=== PATIENT | female | born 1965 | race American Indian/Alaskan Native ===

== ENCOUNTER 2017-02-26 10:37 | Outpatient (CLI) | payer OTHER ==
--- NOTE | 2017-02-26 11:46 | XRay Report ---
LEFT KNEE, 2 views: History: Knee pain. The bony architecture is intact without evidence of fracture or dislocation. No significant soft tissue abnormality is seen. IMPRESSION: Normal left knee.
--- NOTE | 2017-02-26 11:47 | XRay Report ---
LUMBOSACRAL SPINE, 3 VIEWS: History: Back pain Findings: The vertebral bodies, disk spaces and posterior elements are intact. No compression deformity or malalignment. The SI joints are symmetric and unremarkable. Minimal degenerative disc disease and facet arthropathy are noted at all levels. Impression: No evidence for acute injury to the lumbar spine. Minimal spondylosis.
--- NOTE | 2017-02-26 11:49 | XRay Report ---
RIGHT FOOT, 2 VIEWS HISTORY: Right foot pain. FINDINGS: Compared to 09/27/16. There is a transverse fracture near the base of the fifth metatarsal. Please note this fracture was also noted on an x-ray dated 09/27/16. This either represents a new injury or nonunion of the previous fracture. Please correlate with the patient's history. The remaining bony structures are intact. No erosive joint pathology. Mild osteoarthritic changes are noted in the midfoot. Small plantar spur. IMPRESSION: Traumatic fracture, right fifth metatarsal. See above.
== END 2017-02-26 10:38 | disposition home or self-care (01) ==
LOC: XRAY 10:37
PROVIDERS: ATTEND Internal Medicine
DX: S92.351A Displaced fracture of fifth metatarsal bone, right foot, initial encounter for closed fracture (principal); H54.11 Blindness, right eye, low vision left eye; E11.40 Type 2 diabetes mellitus with diabetic neuropathy, unspecified; X58.XXXA Exposure to other specified factors, initial encounter; Y93.89 Activity, other specified; Y92.89 Other specified places as the place of occurrence of the external cause; Y99.8 Other external cause status; M47.896 Other spondylosis, lumbar region; M25.562 Pain in left knee
CPT/HCPCS: 72100

== ENCOUNTER 2017-08-05 14:36 | Outpatient (CLI) | payer MEDICAID ==
--- NOTE | 2017-08-06 10:21 | Mammography Report ---
BILATERAL DIGITAL SCREENING MAMMOGRAM with CAD: 08/05/17 14:36:00 CLINICAL: Routine screening. COMPARISON:03/27/13 FINDINGS: The breasts are almost entirely fatty. No mass, architectural distortion or suspicious calcifications. IMPRESSION: No mammographic evidence of malignancy. BI-RADS CATEGORY: 1 - - Negative RECOMMENDATION: Routine mammographic screening in one year. COMMENT: Patient follow-up letters are generated by our [employer] application.
== END 2017-08-05 14:37 | disposition home or self-care (01) ==
LOC: MAMMO 14:36
PROVIDERS: ATTEND Hospitalist
DX: Z12.31 Encounter for screening mammogram for malignant neoplasm of breast (principal)
CPT/HCPCS: 77067; G0202

== ENCOUNTER 2018-11-18 15:55 | Inpatient (IN) | payer MEDICAID, OTHER, SELFPAY ==
--- NOTE | 2018-11-18 16:50 | Emergency Department Report ---
HPI - General Chief Complaint: Extremity Problem,Nontraumatic Time Seen by Provider: 11/18/18 16:29 - HPI HPI: 53-year-old AA female presents to the emergency department, sent in by her engineering faculty Dr. Robledo, with concern of a right foot and toe infection in this diabetic patient. The patient is a history of [id number] diabetes, hypertension, high cholesterol. She has had some pain and darkening of the skin to the right middle toe and distal foot that has been getting progressively worse for the past month. She denies any fever. She has not been on any antibiotics or taken anything for her symptoms prior to arrival. No recent tr beatriz or sick contacts at home. ED Past Medical Hx - Past Medical History Previous Medical History?: Yes Hx Hypertension: Yes Hx Diabetes: Yes - Surgical History Past Surgical History?: Yes Additional Surgical History: hysterectomy - Social History Smoking Status: Never Smoker Substance Use Type: None - Medications Home Medications: Home Medications Medication Instructions Recorded Confirmed Last Taken Type Ciprofloxacin [Cipro] mg PO BID 08/07/13 08/07/13 08/09/13 History Glipizide/Metformin HCl 1 each PO QDAY 08/07/13 08/07/13 08/08/13 History [Glipizide-Metformin 5-500 mg] Hydrocodone Bit/Acetaminophen 1 each PO Q6H PRN #10 tab 08/07/13 08/09/13 Rx [Lortab 10-500 mg] Hydrocodone Bit/Acetaminophen 1 tab PO Q6H PRN 08/07/13 08/07/13 08/07/13 15:00 History [Lortab 5-500 Tablet] Lisinopril [Zestril] 40 mg PO QDAY 08/07/13 08/07/13 08/09/13 History Lovastatin [Mevacor] 20 mg PO QPM 08/07/13 08/07/13 08/09/13 History Sulfamethoxazole/Trimethoprim 1 each PO BID #20 tablet 08/07/13 08/09/13 Rx [Bactrim DS] Naproxen Sodium [Aleve] 220 mg PO Q8H PRN 08/10/13 08/10/13 08/09/13 History Zolpidem [Ambien] 5 mg PO QHS PRN #10 tablet 08/10/13 Unknown Rx Ibuprofen [Motrin 800 MG tab] 800 mg PO Q8HR PRN #30 tablet 09/27/16 Unknown Rx ED Review of Systems ROS: Stated complaint: (R) FOOT/SENT BY HONEY EXTRACTOR Other details as noted in HPI Comment: All other systems reviewed and negative Constitutional: denies: chills, fever Eyes: denies: eye pain, vision change ENT: denies: ear pain, throat pain Respiratory: denies: cough, shortness of breath Cardiovascular: denies: chest pain, palpitations Gastrointestinal: denies: abdominal pain, vomiting Genitourinary: denies: dysuria, discharge Musculoskeletal: joint swelling (right middle toe and foot swelling), arthralgia (toe pain). denies: back pain Skin: change in color. denies: rash Neurological: denies: headache, weakness Physical Exam - Physical Exam Vital Signs: Vital Signs 11/18/18 15:59 Temperature 97.9 F Pulse Rate 103 H Respiratory 18 Rate Blood Pressure 158/67 O2 Sat by Pulse 97 Oximetry Physical Exam: GENERAL: The patient is well-developed well-nourished. HEENT: Normocephalic. Atraumatic. Patient has moist mucous membranes. EYES: Extraocular motions are intact. NECK: Supple. Trachea is midline. CHEST/LUNGS: Clear to auscultation. There is no respiratory distress noted. HEART/CARDIOVASCULAR: Regular. There is no tachycardia. There is no obvious murmur. ABDOMEN: Abdomen is soft, nontender. Patient has normal bowel sounds. There is no abdominal distention. SKIN: There is some nonpitting swelling to the dorsum of the right foot. There is darkening of the skin to the right middle toe. NEURO: The patient is awake, alert, and oriented. The patient is cooperative. The patient has no focal neurologic deficits. The patient has normal speech. MUSCULOSKELETAL: There is no tenderness or deformity. There is no limitation ra nge of motion. +2 over 4 dorsalis pedis pulse to the affected right foot. ED Course Vital Signs 11/18/18 15:59 Temperature 97.9 F Pulse Rate 103 H Respiratory 18 Rate Blood Pressure 158/67 O2 Sat by Pulse 97 Oximetry ED Medical Decision Making - Lab Data Result diagrams: 11/18/18 17:07 11/18/18 17:07 - Radiology Data Radiology results: image reviewed interpreted by me: X-ray of the right foot and toes shows some soft tissue swelling but otherwise no fracture, dislocations or signs of osteomyelitis. - Medical Decision Making Patient was sent in by podiatry with concern for infection of the right middle toe and swelling of the right foot in this diabetic patient. She does have hyperglycemia but does not appear to be in diabetic ketoacidosis. She was given some IV insulin to start bringing down the blood sugar level. She was empirically started on some vancomycin. She has a mild leukocytosis and first lactic acid level was elevated. She will be admitted to the hospital for further evaluation and treatment and was accepted for admission by the hospitalist service. - Differential Diagnosis cellulitis, osteomyelitis, diabetic ulcer Critical Care Time: No Critical care attestation.: If time is entered above; I have spent that time in minutes in the direct care of this critically ill patient, excluding procedure time. ED Disposition Clinical Impression: Diabetic foot infection, Hyperglycemia Cellulitis Qualifiers: Site of cellulitis: extremity Site of cellulitis of extremity: lower extremity Laterality: right Qualified Code(s): L03.115 - Cellulitis of right lower limb Disposition: OP ADMIT IP TO THIS HOSP Is pt being admited?: Yes Condition: Fair Time of Disposition: 22:54
[2018-11-18 17:20] LABS: Basophils # (Auto) 0.1 K/mm3 (0.0-0.1); Basophils % (Auto) 0.7 % (0.0-1.8); Eosinophils # (Auto) 0.2 K/mm3 (0.0-0.4); Eosinophils % (Auto) 1.8 % (0.0-4.3); Hemoglobin 11.4 gm/dl (10.1-14.3); Lymphocytes # (Auto) 2.8 K/mm3 (1.2-5.4); Lymphocytes % (Auto) 22.2 % (13.4-35.0); Mean Corpuscular HGB Conc 34 % (30-34); Mean Corpuscular Volume 98 fl (79-97); Monocytes # (Auto) 0.8 K/mm3 (0.0-0.8); Platelet Count 291 K/mm3 (140-440); Red Blood Count 3.45 M/mm3 (3.65-5.03)
[2018-11-18 17:34] LABS: Calcium 9.1 mg/dL (8.4-10.2)
[2018-11-18] MEDS ORDERED: HumuLIN R IV ONE (17:40)
[2018-11-18] MEDS ORDERED: VANCOMYCIN/NS 1 GM/250 ML 1 GM/250 ML BAG IV ONE ×2 (17:48→22:30)
--- NOTE | 2018-11-18 19:05 | XRay Report ---
PROCEDURE: XR FOOT 3+V RT TECHNIQUE: Right foot 3 views HISTORY: toe/foot infection COMPARISONS: No prior images available for comparison at this time FINDINGS: Noted are degenerative changes at the mid foot with dorsal osteophytes No bony destructive changes observed no evidence for cortical disruption. There is dorsal soft tissue swelling at the foot. No soft tissue gas appreciated. IMPRESSION: Degenerative changes at the midfoot Dorsal soft tissue swelling No plain film evidence for acute osteomyelitis . This document is electronically signed by Joe Frank MD., November 18 2018 07:03:28 PM ET
[2018-11-18] MEDS ORDERED: D50W (25GM) Syringe IV PRN (21:44)
[2018-11-18] MEDS ORDERED: TYLENOL PR PRN (21:47)
[2018-11-18] MEDS ORDERED: ZOFRAN IV PRN (21:47)
[2018-11-18] MEDS ORDERED: VANCOMYCIN PHARMACY TO DOSE IV SCH (22:00)
[2018-11-18] MEDS ORDERED: HumuLIN R ONE (22:17)
[2018-11-18] MEDS: HumuLIN R SUB-Q SCH (22:20)
[2018-11-18] MEDS: MORPHINE IV PRN (23:37)
[2018-11-19] MEDS: HumuLIN R SUB-Q SCH ×3 (03:07→10:00)
--- NOTE | 2018-11-19 07:45 | History and Physical Report ---
CHIEF COMPLAINT: Numbness of the right foot. HISTORY OF PRESENT ILLNESS: The patient is a 53-year-old female sent by the Podiatry to the Emergency Room after the patient was discovered to have loss of sensation in the right foot involving the four toes except the small fifth toe. There is no history of trauma. There is no history of pain, no history of fever or chills. PAST MEDICAL HISTORY: Pertinent for hypertension, diabetes mellitus, and peripheral neuropathy. PAST SURGICAL HISTORY: Pertinent for hysterectomy. FAMILY HISTORY: Noncontributory. SOCIAL HISTORY: The patient lives with family. Does not smoke, does not drink alcohol and does not use illicit drugs. CURRENT MEDICATIONS: They are not known at this time. ALLERGIES: There are no known drug allergies. REVIEW OF SYSTEMS: CONSTITUTIONAL: There is no fever, no chills, no diaphoresis. HEENT: There is no headache or sore throat. CARDIOVASCULAR SYSTEM: There is no chest pain or orthopnea. RESPIRATORY SYSTEM: There is no shortness of breath or cough. GASTROINTESTINAL SYSTEM: There is no nausea, no vomiting, no abdominal pain, diarrhea or constipation. NEUROLOGICAL SYSTEM: Loss of sensation in the right foot noted. No altered mental status. MUSCULOSKELETAL SYSTEM: There is no joint pain or swelling. DERMATOLOGICAL SYSTEM: There is no skin rash or itching. GENITOURINARY SYSTEM: There is no dysuria, hematuria, or flank pain. Rest of system review is normal. PHYSICAL EXAMINATION: GENERAL: At the time of exam, the patient was found to be alert, oriented x 3, and not in acute distress. VITAL SIGNS: Shows temperature of 97.9 degrees Fahrenheit, pulse of 103, respiration 18, blood pressure 158/67, O2 sat of 97% on room air. HEENT: Show pupils to be equal, round, reactive to light and accommodating. Extraocular muscles are intact. NECK: Neck is supple with no JVD or carotid bruit. CARDIOVASCULAR SYSTEM: Showed normal first and second heart sounds with no gallops or murmurs. RESPIRATORY SYSTEM: Show good air entry on both sides of the lungs with no abnormal breath sounds. GASTROINTESTINAL SYSTEM: Show abdomen to be full, soft, nontender with no organomegaly or rigidity. NEUROLOGICAL SYSTEM: Show loss of sensation in the right foot especially in the first to the fourth toe. There is some sensation in the right fifth toe. There is dark color of the second right toe. There is no tenderness and the neurovascular system shows faint right dorsalis pedis pulse. MUSCULOSKELETAL SYSTEM: Show no joint swelling or tenderness. DERMATOLOGICAL SYSTEM: Show no skin rash except for the dark color of the right second toe. GENITOURINARY SYSTEM: Show no costovertebral angle tenderness. PERTINENT LABORATORY DATA AND IMAGING STUDIES: The patient had x-ray of the right foot done, which shows degenerative changes at the mid foot which does have soft tissue swelling and no evidence of osteomyelitis. Lab results: The patient has CBC done that shows elevated white count of 12,600, normal hemoglobin, normal hematocrit with CBC differential showing elevated segmented neutrophils. The patient's chemistry show low sodium of 135, elevated BUN with normal creatinine and low GFR of 57. The patient's blood glucose level is high with a value of 358. DIAGNOSES: 1. Right foot diabetic neuropathy, 2. Diabetes mellitus. 3. Cellulitis of the right foot. PLAN OF CARE: 1. The patient will be admitted to medical floor. 2. The patient will be on IV vancomycin with pharmacy to dose. 3. The patient will have vascular surgical consult with Dr. Fabien Carrillo. 4. The patient will be on Accu-Chek before meals and at bedtime, followed by low-dose sliding scale using regular insulin coverage. 5. The patient will be on IV morphine 2 mg every 4 hours as needed for pain and IV Zofran 4 mg every 8 hours as needed for nausea and vomiting. 6. The patient will remain n.p.o. until seen by the vascular surgeon. JOB# [id number] OCN/NTS RICHARDD
[2018-11-19] MEDS ORDERED: D50W (25GM) Syringe IV PRN (11:32)
[2018-11-19] MEDS: VANCOMYCIN 1,750 MG in NACL 0.9% 500 ML 500 ML IV SCH ×2 (11:33→22:59)
--- NOTE | 2018-11-19 11:44 | Progress Note ---
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 Noe Robledo due to right middle toe infection needing iv abx and MRI. -Sepsis due to right foot/toe infection with cellulitis and possible abscess: treat with iv Vancomycin, consulted Surgeon, Vascular surgeon and wound care. Follow cultures, and ordered MRI right foot r/o osteomyelitis/abscess. -Uncontrolled IDDM: add ssi, ada and check A1c -Hypertension: cardiac diet, antihypertensives History Interval history: Patient was seen and examined. Follow-up on current diagnosis right foot infection. Overnight uneventful. Patient denies any chest pain, shortness breath, nausea/vomiting or severe headaches. Imaging, nursing note, chart, labs and old chart reviewed. Discussed with patient. Hospitalist Physical - Physical exam Narrative exam: Gen: WDWN, NAD, Awake, Alert, Orientated HEENT: NCAT, EOMI, PERRL, OP Clear Neck: supple, no adenopathy, no thyromegaly, no JVD CVS/Heart: Regular tachycardia, normal S1S2, pulses present bilaterally Chest/Lungs: CTA B, Symmetrical chest expansion, good air entry bilaterally GI/Abdomen: soft, NTND, good bowel sounds, no guarding or rebound /Bladder: no suprapubic tenderness, no CVA or paraspinal tenderness Extermity/Skin: no c/c/e, no obvious rash MSK: FROM x 4 Neuro: CN 2-12 grossly intact, no new focal deficits Psych: calm - Constitutional Vitals: Temp Pulse Resp BP Pulse Ox 98.4 F 104 H 20 120/57 97 11/18/18 22:59 11/18/18 22:59 11/18/18 22:59 11/18/18 22:59 11/18/18 22:59 Results - Labs CBC & Chem 7: 11/18/18 17:07 11/18/18 17:07 Labs: Laboratory Last Values WBC 12.6 K/mm3 (4.5-11.0) H 11/18/18 17:07 RBC 3.45 M/mm3 (3.65-5.03) L 11/18/18 17:07 Hgb 11.4 gm/dl (10.1-14.3) 11/18/18 17:07 Hct 34.0 % (30.3-42.9) 11/18/18 17:07 MCV 98 fl (79-97) H 11/18/18 17:07 MCH 33 pg (28-32) H 11/18/18 17:07 MCHC 34 % (30-34) 11/18/18 17:07 RDW 14.0 % (13.2-15.2) 11/18/18 17:07 Plt Count 291 K/mm3 (140-440) 11/18/18 17:07 Lymph % (Auto) 22.2 % (13.4-35.0) 11/18/18 17:07 [place] % (Auto) 6.0 % (0.0-7.3) 11/18/18 17:07 Eos % (Auto) 1.8 % (0.0-4.3) 11/18/18 17:07 Baso % (Auto) 0.7 % (0.0-1.8) 11/18/18 17:07 Lymph # 2.8 K/mm3 (1.2-5.4) 11/18/18 17:07 [place] # 0.8 K/mm3 (0.0-0.8) 11/18/18 17:07 Eos # 0.2 K/mm3 (0.0-0.4) 11/18/18 17:07 Baso # 0.1 K/mm3 (0.0-0.1) 11/18/18 17:07 Seg Neutrophils % 69.3 % (40.0-70.0) 11/18/18 17:07 Seg Neutrophils # 8.7 K/mm3 (1.8-7.7) H 11/18/18 17:07 Sodium 135 mmol/L (137-145) L 11/18/18 17:07 Potassium 4.5 mmol/L (3.6-5.0) 11/18/18 17:07 Chloride 98.9 mmol/L (98-107) 11/18/18 17:07 Carbon Dioxide 21 mmol/L (22-30) L 11/18/18 17:07 Anion Gap 20 mmol/L 11/18/18 17:07 BUN 34 mg/dL (7-17) H 11/18/18 17:07 Creatinine 1.2 mg/dL (0.7-1.2) 11/18/18 17:07 Estimated GFR 57 ml/min 11/18/18 17:07 BUN/Creatinine Ratio 28 % 11/18/18 17:07 Glucose 358 mg/dL (65-100) H 11/18/18 17:07 POC Glucose 245 (70-105) H 11/19/18 07:36 Lactic Acid 2.00 mmol/L (0.7-2.0) 11/18/18 19:15 Calcium 9.1 mg/dL (8.4-10.2) 11/18/18 17:07
[2018-11-19] MEDS: HumaLOG SUB-Q SCH ×3 (11:59→23:15)
[2018-11-19] MEDS ORDERED: NON-FORMULARY (Pregabalin [Lyrica] 150 MG) PO SCH (12:15)
[2018-11-19] MEDS ORDERED: NON-FORMULARY (Colchicine 0.6 MG) PO SCH (12:15)
--- NOTE | 2018-11-19 12:50 | Consultation ---
History of Present Illness Consult date: 11/19/18 - History of present illness History of present illness: 53 yo diabetic female who c/o problems with her right 3rd toe. There has not been any drainage or infection. Her last A1c was > 10.0. She denies rest pain or claudication of the RLE. Past History Past Medical History: diabetes, hyperlipidemia, other (Gout) Medications and Allergies Allergies Allergy/AdvReac Type Severity Reaction Status Date / Time No Known Allergies Allergy Unverified 08/07/13 17:15 Home Medications Medication Instructions Recorded Confirmed Last Taken Type Glipizide/Metformin HCl 500 each PO QDAY 08/07/13 11/19/18 1 Day Ago History [Glipizide-Metformin 5-500 mg] ~11/18/18 Lisinopril [Zestril] 40 mg PO QDAY 08/07/13 11/19/18 1 Day Ago History ~11/18/18 Lovastatin [Mevacor] 20 mg PO QPM 08/07/13 11/19/18 2 Days Ago History ~11/17/18 Colchicine 0.6 mg PO QDAY 11/19/18 11/19/18 Unknown History Furosemide [Lasix TAB] 40 mg PO QDAY 11/19/18 11/19/18 1 Day Ago History ~11/18/18 Insulin Glargine,Hum.rec.anlog 50 units SQ QHS 11/19/18 11/19/18 1 Day Ago History [Lantus] ~11/18/18 Lispro Insulin [Humalog] 14 unit SQ AC MDD 14-24 units 11/19/18 11/19/18 1 Day Ago History ~11/18/18 Pregabalin [Lyrica] 150 mg PO QDAY 11/19/18 11/19/18 1 Day Ago History ~11/18/18 hydroCHLOROthiazide [HCTZ] 12.5 mg PO BID 11/19/18 11/19/18 1 Day Ago History ~11/18/18 Active Meds: Active Medications Acetaminophen (Tylenol) 650 mg ID Q4H PRN PRN Reason: Fever >101 Colchicine (Colchicine) 0.6 mg PO QDAY KATARZYNA Dextrose (D50w (25gm) Syringe) 50 ml IV PRN PRN PRN Reason: Hypoglycemia Furosemide (Lasix) 40 mg PO QDAY KATARZYNA Heparin Sodium (Porcine) (Heparin) 5,000 unit SUB-Q Q12HR [facility] Vancomycin HCl 1,750 mg/ (Sodium Chloride) 535 mls @ 333.333 mls/hr IV Q12H [facility] Last Admin: 11/19/18 11:33 Dose: 333.333 mls/hr Documented by: Insulin Glargine (Lantus) 50 units SUB-Q QHS [facility] Insulin Human Lispro (Humalog) 0 unit SUB-Q ACHS [facility]; Protocol Last Admin: 11/19/18 11:59 Dose: 3 unit Documented by: Lisinopril (Zestril) 40 mg PO QDAY [facility] Miscellaneous Medication (Lovastatin [Mevacor]) 20 mg PO QPM [facility] Morphine Sulfate (Morphine) 2 mg IV Q4H PRN PRN Reason: Pain, Moderate (4-6) Last Admin: 11/18/18 23:37 Dose: 2 mg Documented by: Ondansetron HCl (Zofran) 4 mg IV Q8H PRN PRN Reason: Nausea And Vomiting Pregabalin (Lyrica) 150 mg PO QDAY [facility] Review of Systems All systems: negative (none) Exam Vital Signs Temp Pulse Resp BP Pulse Ox 97.9 F 103 H 18 158/67 97 11/18/18 15:59 11/18/18 15:59 11/18/18 15:59 11/18/18 15:59 11/18/18 15:59 - General physical appearance Positive: well developed, well nourished, no distress - Eyes Positive: PERRL, normal occular movement - ENT Positive: normal pinna, normal nares, normal mucosa, no hearing loss, no congestion - Neck Positive: no masses, no bruits, trachea midline, no venous distension - Respiratory Positive: normal expansion, normal respiratory effort, clear to auscultation - Cardiovascular Rhythm: regular Heart Sounds: Present: S1 & S2. Absent: rub, click - Extremities Extremities: abnormal (I cannot palpate the right DP or PT pulses. Her right 3rd toe is mildly edematous and the associated nail is missing. There is no obvious drainage.) - Breasts Breasts: deferred - Abdomen Abdomen: Present: soft, bowel sounds normal. Absent: tender, distended Hernia: none - Genitourinary Female Genitourinary: deferred - Integumentary other (See extremities.) - Neurologic Neurologic: alert and oriented to time, place and person, motor strength and sensation are grossly intact - Musculoskeletal normal gait, normal posture - Psychiatric Psychiatric: appropriate mood/affect, intact judgment & insight Results - Labs 11/18/18 17:07 11/18/18 17:07 Abnormal lab results 11/18/18 11/18/18 11/18/18 Range/Units 17:07 17:07 17:07 WBC 12.6 H (4.5-11.0) K/mm3 RBC 3.45 L (3.65-5.03) M/mm3 MCV 98 H (79-97) fl MCH 33 H (28-32) pg Seg Neutrophils # 8.7 H (1.8-7.7) K/mm3 Sodium 135 L (137-145) mmol/L Carbon Dioxide 21 L (22-30) mmol/L BUN 34 H (7-17) mg/dL Glucose 358 H (65-100) mg/dL POC Glucose (70-105) Lactic Acid 2.70 H* (0.7-2.0) mmol/L 11/18/18 11/19/18 11/19/18 Range/Units 22:15 02:57 06:28 WBC (4.5-11.0) K/mm3 RBC (3.65-5.03) M/mm3 MCV (79-97) fl MCH (28-32) pg Seg Neutrophils # (1.8-7.7) K/mm3 Sodium (137-145) mmol/L Carbon Dioxide (22-30) mmol/L BUN (7-17) mg/dL Glucose (65-100) mg/dL POC Glucose 318 H 322 H 253 H (70-105) Lactic Acid (0.7-2.0) mmol/L 11/19/18 Range/Units 07:36 WBC (4.5-11.0) K/mm3 RBC (3.65-5.03) M/mm3 MCV (79-97) fl MCH (28-32) pg Seg Neutrophils # (1.8-7.7) K/mm3 Sodium (137-145) mmol/L Carbon Dioxide (22-30) mmol/L BUN (7-17) mg/dL Glucose (65-100) mg/dL POC Glucose 245 H (70-105) Lactic Acid (0.7-2.0) mmol/L Diabetes panel 11/18/18 Range/Units 17:07 Sodium 135 L (137-145) mmol/L Potassium 4.5 (3.6-5.0) mmol/L Chloride 98.9 (98-107) mmol/L Carbon Dioxide 21 L (22-30) mmol/L BUN 34 H (7-17) mg/dL Creatinine 1.2 (0.7-1.2) mg/dL Glucose 358 H (65-100) mg/dL Calcium 9.1 (8.4-10.2) mg/dL Calcium panel 11/18/18 Range/Units 17:07 Calcium 9.1 (8.4-10.2) mg/dL Pituitary panel 11/18/18 Range/Units 17:07 Sodium 135 L (137-145) mmol/L Potassium 4.5 (3.6-5.0) mmol/L Chloride 98.9 (98-107) mmol/L Carbon Dioxide 21 L (22-30) mmol/L BUN 34 H (7-17) mg/dL Creatinine 1.2 (0.7-1.2) mg/dL Glucose 358 H (65-100) mg/dL Calcium 9.1 (8.4-10.2) mg/dL Adrenal panel 11/18/18 Range/Units 17:07 Sodium 135 L (137-145) mmol/L Potassium 4.5 (3.6-5.0) mmol/L Chloride 98.9 (98-107) mmol/L Carbon Dioxide 21 L (22-30) mmol/L BUN 34 H (7-17) mg/dL Creatinine 1.2 (0.7-1.2) mg/dL Glucose 358 H (65-100) mg/dL Calcium 9.1 (8.4-10.2) mg/dL Assessment and Plan - Patient Problems (1) Peripheral vascular disease Current Visit: Yes Status: Acute Plan to address problem: 1) RLE arterial dopplers 2) Pt needs improved control of her diabetes.
--- NOTE | 2018-11-19 17:11 | Consultation ---
History of Present Illness - Reason for Consult Consult date: 11/19/18 Right foot pain Requesting physician: FILIPPO LR - History of Present Illness This pt is a 53yo AAF that was admitted via the ER due to right foot peripheral neuropathy. The pt was evaluated by Podiatry as an outpt and was reported to have complaints of right foot digital numbness and was therefore sent to the ER for further work up. A Vascular surgery and a wound care surgical consult have been requested to further evaluate. The pt c/o pain along the dorsum of her right foot, and skin darkening of her right 3rd toe. She is unaware of any specific trauma. Past History Past Medical History: diabetes, hyperlipidemia, other (Gout) Past Surgical History: hysterectomy Social history: lives with family. denies: smoking, alcohol abuse, prescription drug abuse, IV drug use Family history: no significant family history Medications and Allergies Allergies Allergy/AdvReac Type Severity Reaction Status Date / Time No Known Allergies Allergy Unverified 08/07/13 17:15 Home Medications Medication Instructions Recorded Confirmed Last Taken Type Glipizide/Metformin HCl 500 each PO QDAY 08/07/13 11/19/18 1 Day Ago History [Glipizide-Metformin 5-500 mg] ~11/18/18 Lisinopril [Zestril] 40 mg PO QDAY 08/07/13 11/19/18 1 Day Ago History ~11/18/18 Lovastatin [Mevacor] 20 mg PO QPM 08/07/13 11/19/18 2 Days Ago History ~11/17/18 Colchicine 0.6 mg PO QDAY 11/19/18 11/19/18 Unknown History Furosemide [Lasix TAB] 40 mg PO QDAY 11/19/18 11/19/18 1 Day Ago History ~11/18/18 Insulin Glargine,Hum.rec.anlog 50 units SQ QHS 11/19/18 11/19/18 1 Day Ago History [Lantus] ~11/18/18 Lispro Insulin [Humalog] 14 unit SQ AC MDD 14-24 units 11/19/18 11/19/18 1 Day Ago History ~11/18/18 Pregabalin [Lyrica] 150 mg PO QDAY 11/19/18 11/19/18 1 Day Ago History ~11/18/18 hydroCHLOROthiazide [HCTZ] 12.5 mg PO BID 11/19/18 11/19/18 1 Day Ago History ~11/18/18 Active Meds: Active Medications Acetaminophen (Tylenol) [address] Q4H PRN PRN Reason: Fever >101 Colchicine (Colchicine) 0.6 mg PO QDAY [facility] Dextrose (D50w (25gm) Syringe) 50 ml IV PRN PRN PRN Reason: Hypoglycemia Furosemide (Lasix) 40 mg PO QDAY [facility] Heparin Sodium (Porcine) (Heparin) 5,000 unit SUB-Q Q12HR [facility] Vancomycin HCl 1,750 mg/ (Sodium Chloride) 535 mls @ 333.333 mls/hr IV Q12H [facility] Last Admin: 11/19/18 11:33 Dose: 333.333 mls/hr Documented by: Insulin Glargine (Lantus) 50 units SUB-Q QHS [facility] Insulin Human Lispro (Humalog) 0 unit SUB-Q ACHS [facility]; Protocol Last Admin: 11/19/18 11:59 Dose: 3 unit Documented by: Lisinopril (Zestril) 40 mg PO QDAY [facility] Morphine Sulfate (Morphine) 2 mg IV Q4H PRN PRN Reason: Pain, Moderate (4-6) Last Admin: 11/18/18 23:37 Dose: 2 mg Documented by: Ondansetron HCl (Zofran) 4 mg IV Q8H PRN PRN Reason: Nausea And Vomiting Pravastatin Sodium (Pravachol) 20 mg PO QHS [facility] Pregabalin (Lyrica) 150 mg PO QDAY [facility] Review of Systems All systems: negative Exam - Constitutional Vitals: Temp Pulse Resp BP Pulse Ox 97.9 F 93 H 18 151/94 97 11/19/18 11:44 11/19/18 11:44 11/19/18 11:44 11/19/18 11:44 11/19/18 11:44 General appearance: Present: no acute distress - EENT Eyes: Present: EOM intact ENT: hearing intact - Neck Neck: Present: supple - Respiratory Respiratory effort: normal - Extremities Extremities: no ischemia, pulses intact (palpable DP PT bilaterally), normal temperature, abnormal (her right 3rd toe is slightly darker than the rest, the nail is trimmed short, but no obvious wounds, erythema, or drainage appreciated. Non-tender to manipulation. No flutuance or induration. See pictures below) - Psychiatric Psychiatric: appropriate mood/affect, intact judgment & insight, cooperative - Neurologic Neurologic: other (peripheral neuropathy) - Additional findings Additional findings: Results - Labs CBC & Chem 7: 11/18/18 17:07 11/18/18 17:07 Labs: Abnormal lab results 11/18/18 11/18/18 11/18/18 Range/Units 17:07 17:07 17:07 WBC 12.6 H (4.5-11.0) K/mm3 RBC 3.45 L (3.65-5.03) M/mm3 MCV 98 H (79-97) fl MCH 33 H (28-32) pg Seg Neutrophils # 8.7 H (1.8-7.7) K/mm3 Sodium 135 L (137-145) mmol/L Carbon Dioxide 21 L (22-30) mmol/L BUN 34 H (7-17) mg/dL Glucose 358 H (65-100) mg/dL POC Glucose (70-105) Lactic Acid 2.70 H* (0.7-2.0) mmol/L 11/18/18 11/19/18 11/19/18 Range/Units 22:15 02:57 06:28 WBC (4.5-11.0) K/mm3 RBC (3.65-5.03) M/mm3 MCV (79-97) fl MCH (28-32) pg Seg Neutrophils # (1.8-7.7) K/mm3 Sodium (137-145) mmol/L Carbon Dioxide (22-30) mmol/L BUN (7-17) mg/dL Glucose (65-100) mg/dL POC Glucose 318 H 322 H 253 H (70-105) Lactic Acid (0.7-2.0) mmol/L 11/19/18 Range/Units 07:36 WBC (4.5-11.0) K/mm3 RBC (3.65-5.03) M/mm3 MCV (79-97) fl MCH (28-32) pg Seg Neutrophils # (1.8-7.7) K/mm3 Sodium (137-145) mmol/L Carbon Dioxide (22-30) mmol/L BUN (7-17) mg/dL Glucose (65-100) mg/dL POC Glucose 245 H (70-105) Lactic Acid (0.7-2.0) mmol/L Assessment and Plan This pt was admitted with right foot pain and digital numbness. General surgery has been consulted. Non-invasive arterial duplex and ABIs have been ordered. The official report is pending, but the images reviewed. She appears to have multiple phasic arterial flow to both feet. Await the official interpretation, but suspect the pt has adequate blood flow to heal distal wounds. No arterial intervention recommended at this point. - Patient Problems (1) Right foot pain Current Visit: Yes Status: Acute
[2018-11-19] MEDS: LYRICA PO SCH (17:54)
[2018-11-19] MEDS: ZESTRIL PO SCH (17:55)
[2018-11-19] MEDS: LASIX PO SCH (17:55)
[2018-11-19] MEDS ORDERED: LOVASTATIN 20 MG PO SCH (18:00)
--- NOTE | 2018-11-19 20:00 | Magnetic Resonance Report ---
PROCEDURE: MR HENRIQUEZ NONJOINT RT WO CON HISTORY: right toe infection with cellulitis FINDINGS: MRI of the right foot was performed using sagittal T1, sagittal recovery, axial T1, axial f at saturated T2, coronal T1, coronal fat saturated T2 and coronal inversion recovery images. There is a vitamin E marker plantar to the second and third digits which is presumably the area of in terest. No evidence of osteomyelitis is seen in the toes. There are relatively advanced degenerative changes at the tarsometatarsal joints and at the navicular cuneiform joint, likely neuropathic change. There is mild subcutaneous edema along the dorsum of the foot which could be cellulitis or consequenc e of venous stasis. IMPRESSION: No evidence of osteomyelitis is seen in the toes Degenerative changes with multifocal bone edema throughout the bones of the midfoot, likely neuropath ic change This document is electronically signed by Ector Rudd MD., November 19 2018 07:57:59 PM ET
[2018-11-19] MEDS: PRAVACHOL PO SCH (21:08)
[2018-11-19] MEDS: MORPHINE IV PRN (21:09)
[2018-11-19] MEDS ORDERED: LANTUS SUB-Q SCH (22:00)
[2018-11-20 05:44] LABS: Hematocrit 30.9 % (30.3-42.9); Hemoglobin 10.7 gm/dl (10.1-14.3); Mean Corpuscular HGB Conc 35 % (30-34); Mean Corpuscular Volume 95 fl (79-97); Platelet Count 268 K/mm3 (140-440); Red Blood Count 3.25 M/mm3 (3.65-5.03); Red Cell Distribution Width 13.8 % (13.2-15.2)
[2018-11-20 06:10] LABS: Alanine Aminotransferase 9 units/L (7-56); Albumin 2.8 g/dL (3.9-5); BUN/Creatinine Ratio 23; Blood Urea Nitrogen 21 mg/dL (7-17); Calcium 8.8 mg/dL (8.4-10.2); Hemolysis Index 27
[2018-11-20] MEDS: HumaLOG SUB-Q SCH ×4 (08:19→21:14)
[2018-11-20] MEDS: LASIX PO SCH (10:41)
[2018-11-20] MEDS: HEPARIN SUB-Q SCH ×3 (10:41→21:15)
[2018-11-20] MEDS: ZESTRIL PO SCH (10:41)
[2018-11-20] MEDS: LYRICA PO SCH (10:41)
[2018-11-20] MEDS: COLCHICINE PO SCH (10:42)
[2018-11-20] MEDS: VANCOMYCIN 1,750 MG in NACL 0.9% 500 ML 500 ML IV SCH ×2 (11:02→22:44)
--- NOTE | 2018-11-20 11:09 | Event Note ---
Date: 11/20/18 Pt awake and alert. No new complaint. Continue to await official arterial report. No vascular surgery intervention recommended at this point. Discussed the importance of good DM management, and proper fitting footwear.
--- NOTE | 2018-11-20 11:10 | Progress Note ---
Assessment and Plan - Patient Problems (1) Peripheral vascular disease Current Visit: Yes Status: Acute Plan to address problem: 1) No specific recommendations 2) Continue tight diabetes control 3) Will sign off. Subjective Date of service: 11/20/18 Patient Reports: Positive: no new complaints Objective Vital Signs - 12hr 11/20/18 11/20/18 00:16 06:12 Temperature 98.2 F 98.1 F Pulse Rate 94 H 95 H Respiratory 20 20 Rate Blood Pressure 128/75 130/73 O2 Sat by Pulse 98 97 Oximetry - Integumentary other (No change in right foot exam.) - Labs 11/20/18 04:18 11/20/18 04:18 Diabetes panel 11/20/18 11/20/18 Range/Units 04:18 04:18 Sodium 140 (137-145) mmol/L Potassium 4.1 (3.6-5.0) mmol/L Chloride 104.9 (98-107) mmol/L Carbon Dioxide 21 L (22-30) mmol/L BUN 21 H (7-17) mg/dL Creatinine 0.9 (0.7-1.2) mg/dL Glucose 169 H (65-100) mg/dL Hemoglobin A1c 9.0 H (4-6) % Calcium 8.8 (8.4-10.2) mg/dL AST 11 (5-40) units/L ALT 9 (7-56) units/L Alkaline Phosphatase 118 (35-129) units/L Total Protein 6.3 (6.3-8.2) g/dL Albumin 2.8 L (3.9-5) g/dL Calcium panel 11/20/18 Range/Units 04:18 Calcium 8.8 (8.4-10.2) mg/dL Albumin 2.8 L (3.9-5) g/dL Pituitary panel 11/20/18 Range/Units 04:18 Sodium 140 (137-145) mmol/L Potassium 4.1 (3.6-5.0) mmol/L Chloride 104.9 (98-107) mmol/L Carbon Dioxide 21 L (22-30) mmol/L BUN 21 H (7-17) mg/dL Creatinine 0.9 (0.7-1.2) mg/dL Glucose 169 H (65-100) mg/dL Calcium 8.8 (8.4-10.2) mg/dL Adrenal panel 11/20/18 Range/Units 04:18 Sodium 140 (137-145) mmol/L Potassium 4.1 (3.6-5.0) mmol/L Chloride 104.9 (98-107) mmol/L Carbon Dioxide 21 L (22-30) mmol/L BUN 21 H (7-17) mg/dL Creatinine 0.9 (0.7-1.2) mg/dL Glucose 169 H (65-100) mg/dL Calcium 8.8 (8.4-10.2) mg/dL Total Bilirubin 0.20 (0.1-1.2) mg/dL AST 11 (5-40) units/L ALT 9 (7-56) units/L Alkaline Phosphatase 118 (35-129) units/L Total Protein 6.3 (6.3-8.2) g/dL Albumin 2.8 L (3.9-5) g/dL - Imaging Additional Studies: Vascular surgery note read.
--- NOTE | 2018-11-20 11:56 | Progress Note ---
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 Neo Robledo due to right middle toe infection needing iv abx and MRI. Sepsis due to right foot/toe infection with cellulitis and possible abscess: treat with iv Vancomycin, consulted Surgeon, Vascular surgeon and wound care. Follow cultures, and ordered MRI --negative for osteomyelitis -Uncontrolled IDDM: add ssi, ada and check A1c 'Insulin adjusted to 60 units qhs of Lantus -Hypertension: cardiac diet, antihypertensives Subjective Date of service: 11/20/18 Objective - Constitutional Vitals: Vital Signs - 12hr 11/20/18 11/20/18 00:16 06:12 Temperature 98.2 F 98.1 F Pulse Rate 94 H 95 H Respiratory 20 20 Rate Blood Pressure 128/75 130/73 O2 Sat by Pulse 98 97 Oximetry General appearance: Present: no acute distress, well-nourished - EENT Eyes: PERRL, EOM intact ENT: hearing intact, clear oral mucosa Ears: bilateral: normal - Neck Neck: supple, normal ROM - Respiratory Respiratory effort: normal Respiratory: bilateral: CTA - Breasts Breasts: normal - Cardiovascular Heart rate: 78 Rhythm: regular Heart Sounds: Present: S1 & S2. Absent: gallop, rub Extremities: pulses intact, No edema, normal color, Full ROM, abnormal (Near gangrenous 3 rd toe) - Gastrointestinal General gastrointestinal: Present: soft, non-tender, non-distended, normal bowel sounds - Genitourinary Female genitourinary: deferred, normal - Integumentary Integumentary: clear, warm, dry - Musculoskeletal Musculoskeletal: 1, strength equal bilaterally - Neurologic Neurologic: moves all extremities - Psychiatric Psychiatric: memory intact, appropriate mood/affect, intact judgment & insight - Labs CBC & Chem 7: 11/20/18 04:18 11/20/18 04:18 Labs: Abnormal lab results 11/19/18 11/19/18 11/19/18 Range/Units 11:36 15:51 23:08 RBC (3.65-5.03) M/mm3 MCH (28-32) pg MCHC (30-34) % Carbon Dioxide (22-30) mmol/L BUN (7-17) mg/dL Glucose (65-100) mg/dL POC Glucose 191 H 232 H 165 H (70-105) Hemoglobin A1c (4-6) % Albumin (3.9-5) g/dL 11/20/18 11/20/18 11/20/18 Range/Units 00:22 03:17 04:18 RBC 3.25 L (3.65-5.03) M/mm3 MCH 33 H (28-32) pg MCHC 35 H (30-34) % Carbon Dioxide (22-30) mmol/L BUN (7-17) mg/dL Glucose (65-100) mg/dL POC Glucose 157 H 161 H (70-105) Hemoglobin A1c (4-6) % Albumin (3.9-5) g/dL 11/20/18 11/20/18 11/20/18 Range/Units 04:18 04:18 06:18 RBC (3.65-5.03) M/mm3 MCH (28-32) pg MCHC (30-34) % Carbon Dioxide 21 L (22-30) mmol/L BUN 21 H (7-17) mg/dL Glucose 169 H (65-100) mg/dL POC Glucose 236 H (70-105) Hemoglobin A1c 9.0 H (4-6) % Albumin 2.8 L (3.9-5) g/dL 11/20/18 Range/Units 11:16 RBC (3.65-5.03) M/mm3 MCH (28-32) pg MCHC (30-34) % Carbon Dioxide (22-30) mmol/L BUN (7-17) mg/dL Glucose (65-100) mg/dL POC Glucose 296 H (70-105) Hemoglobin A1c (4-6) % Albumin (3.9-5) g/dL
[2018-11-20] MEDS ORDERED: LANTUS SUB-Q SCH (11:57)
[2018-11-20] MEDS: DIFLUCAN PO SCH (17:36)
--- NOTE | 2018-11-20 18:55 | Vascular Lab Report ---
PROCEDURE: VL ARTERIAL DUPLEX LE BILAT HISTORY: Ulcer FINDINGS: Real-time ultrasound of the right leg and left leg was performed using grayscale and color Doppler images. Ankle brachial indices were also performed. On the right, peak systolic velocity in the common femoral artery was 104 cm/s; proximal SFA 97 cm/s; mid SFA 99 cm/s; distal SFA 86 cm/s; deep femoral artery 74 cm/s; popliteal artery 91 cm/s; posterio r tibial artery 52 cm/s; anterior tibial artery 105 cm/s. Triphasic waveforms are seen throughout the right leg. Right brachial pressure was 164 mmHg. Posterior tibial pressure was 186 mmHg and dorsalis pedis press ure 187 mmHg. Right ankle-brachial index was 1.14 which is normal. On the left, peak systolic velocity in the common femoral artery was 109 cm/s; proximal SFA 106 cm/s; mid SFA 67 cm/s; distal SFA 111 cm/s; deep femoral artery 115 cm/s; popliteal artery 92 cm/s; english and reading instructor ior tibial artery 84 cm/s; anterior tibial artery 87 cm/s. Left brachial pressure was 1 54 mmHg. Posterior tibial pressure was 184 mmHg dorsalis pedis pressure 182 mmHg. Left ankle-brachial index was 1.12 which is within normal limits. Triphasic waveforms were seen throughout the left leg. Plaque is seen throughout the arterial vasculature of both legs without significant stenosis. IMPRESSION: The leg arterial vasculature appears patent bilaterally Ankle-brachial indices are within normal limits. This document is electronically signed by Ector Rudd MD., November 21 2018 09:33:15 AM ET
[2018-11-20] MEDS: PRAVACHOL PO SCH (21:14)
[2018-11-21] MEDS: HumaLOG SUB-Q SCH ×3 (08:29→17:52)
--- NOTE | 2018-11-21 09:36 | Vascular Lab Report ---
PROCEDURE: VL ARTERIAL DUPLEX LE BILAT HISTORY: Ulcer FINDINGS: Real-time ultrasound of the right leg and left leg was performed using grayscale and color Doppler images. Ankle brachial indices were also performed. On the right, peak systolic velocity in the common femoral artery was 104 cm/s; proximal SFA 97 cm/s; mid SFA 99 cm/s; distal SFA 86 cm/s; deep femoral artery 74 cm/s; popliteal artery 91 cm/s; posterio r tibial artery 52 cm/s; anterior tibial artery 105 cm/s. Triphasic waveforms are seen throughout the right leg. Right brachial pressure was 164 mmHg. Posterior tibial pressure was 186 mmHg and dorsalis pedis press ure 187 mmHg. Right ankle-brachial index was 1.14 which is normal. On the left, peak systolic velocity in the common femoral artery was 109 cm/s; proximal SFA 106 cm/s; mid SFA 67 cm/s; distal SFA 111 cm/s; deep femoral artery 115 cm/s; popliteal artery 92 cm/s; pharmacy informatics specialist ior tibial artery 84 cm/s; anterior tibial artery 87 cm/s. Left brachial pressure was 1 54 mmHg. Posterior tibial pressure was 184 mmHg dorsalis pedis pressure 182 mmHg. Left ankle-brachial index was 1.12 which is within normal limits. Triphasic waveforms were seen throughout the left leg. Plaque is seen throughout the arterial vasculature of both legs without significant stenosis. IMPRESSION: The leg arterial vasculature appears patent bilaterally Ankle-brachial indices are within normal limits. This document is electronically signed by Ector Rudd MD., November 21 2018 09:33:15 AM ET
[2018-11-21] MEDS: COLCHICINE PO SCH (11:13)
[2018-11-21] MEDS: DIFLUCAN PO SCH (11:13)
[2018-11-21] MEDS: ZESTRIL PO SCH (11:14)
[2018-11-21] MEDS: LASIX PO SCH (11:14)
[2018-11-21] MEDS: LYRICA PO SCH (11:14)
[2018-11-21] MEDS: VANCOMYCIN 1,750 MG in NACL 0.9% 500 ML 500 ML IV SCH (11:32)
[2018-11-21] MEDS: HEPARIN SUB-Q SCH (11:36)
[2018-11-21 12:26] VITALS: BP 163/92
--- NOTE | 2018-11-21 15:12 | Discharge Summary ---
Providers - Providers Date of Admission: 11/18/18 21:39 Date of discharge: 11/21/18 Attending physician: CLAUDINE MARISCAL 11/19/18 06:00 Consult to Physician [CONS] Routine Comment: Consulting Provider: CARLOS RANDHAWA Physician Instructions: Reason For Exam: LOSS OF FEELING RIGHT FOOT 11/19/18 09:45 Consult to Physician [CONS] Routine Comment: Consulting Provider: DEEPIKA JOYCE Physician Instructions: Reason For Exam: right toe infection 11/19/18 09:46 Consult to Wound/ET Nurse [CONS] Routine Reason For Exam: wound eval 11/19/18 09:48 Consult to Physician [CONS] Routine Comment: Consulting Provider: SUMAN DOYLE Physician Instructions: Reason For Exam: right toe infection, your patient Primary care physician: THOMAS LACY MD Hospitalization Condition: Fair Pertinent studies: BLE Arterial duplex scan -normal perfusion MRI L Foot -No Osteomyelitis Hospital course: 1. Rt 3 rd toe hematoma Uncontrolled IDDM: add ssi, ada and check A1c 'Insulin adjusted to 60 units qhs of Lantus Hypertension: cardiac diet, antihypertensives Disposition: DC-01 TO HOME OR SELFCARE Core Measure Documentation - Palliative Care Palliative Care/ Comfort Measures: Not Applicable - Core Measures Any of the following diagnoses?: none Exam - Constitutional Vitals: Temp Pulse Resp BP Pulse Ox 98.2 F 96 H 20 163/92 98 11/21/18 12:11 11/21/18 12:11 11/21/18 12:11 11/21/18 12:13 11/21/18 12:11 General appearance: Present: no acute distress, well-nourished - EENT Eyes: Present: PERRL ENT: hearing intact, clear oral mucosa - Neck Neck: Present: supple, normal ROM - Respiratory Respiratory effort: normal Respiratory: bilateral: CTA - Cardiovascular Heart rate: 789 Rhythm: regular Heart Sounds: Present: S1 & S2. Absent: rub, click - Extremities Extremities: pulses symmetrical, No edema, abnormal (Rt 3 rd toe Hematoma- No cellulitis) Peripheral Pulses: within normal limits - Abdominal General gastrointestinal: Present: soft, non-tender, non-distended, normal bowel sounds Female genitourinary: Present: normal - Integumentary Integumentary: Present: clear, warm, dry - Musculoskeletal Musculoskeletal: gait normal, strength equal bilaterally - Psychiatric Psychiatric: appropriate mood/affect, intact judgment & insight - Neurologic Neurologic: CNII-XII intact, moves all extremities Plan Weight Bearing Status: Partial Weight Bearing Diet: low carbohydrate Follow up with: LEATHA CHAN MD [Staff Physician] - 7 Days
[2018-11-21] MEDS ORDERED: HCTZ PO SCH (16:00)
[2018-11-21] MEDS ORDERED: HumaLOG SUB-Q SCH (16:30)
== END 2018-11-21 17:30 | disposition home or self-care (01) | DRG 872 ==
LOC: ED 15:55 → 3A 21:39
PROVIDERS: ADMIT Internal Medicine; ATTEND Internal Medicine
DX: A41.9 Sepsis, unspecified organism (principal); L03.115 Cellulitis of right lower limb; E11.65 Type 2 diabetes mellitus with hyperglycemia; E11.42 Type 2 diabetes mellitus with diabetic polyneuropathy; E78.00 Pure hypercholesterolemia, unspecified; M79.81 Nontraumatic hematoma of soft tissue; I10 Essential (primary) hypertension; M10.9 Gout, unspecified; Z79.4 Long term (current) use of insulin; Z90.89 Acquired absence of other organs; Z79.899 Other long term (current) drug therapy; Z79.1 Long term (current) use of non-steroidal anti-inflammatories (NSAID); Z90.710 Acquired absence of both cervix and uterus
CPT/HCPCS: 36415; 80048; 80053; 82140; 82962; 83036; 85025; 85027; 87040; 93922; 93925; 96365; 96375; 99285; G0378; A9270-GY; J1644; J1815; J2270; J3370; J7040

== ENCOUNTER 2019-05-08 09:05 | Outpatient (CLI) | payer MEDICAID ==
--- NOTE | 2019-05-11 10:51 | Mammography Report ---
BILATERAL DIGITAL SCREENING MAMMOGRAM WITH CAD INDICATION: Routine screening mammography. TECHNIQUE: Digital bilateral 2D mammography was obtained in the craniocaudal and mediolateral obliq ue projections. This examination was interpreted with the benefit of Computer-Aided Detection analysi s. COMPARISON: 08/05/2017 FINDINGS: Breast Density: The breasts are almost entirely fatty. No mass, architectural distortion or suspicious calcifications. IMPRESSION:No mammographic evidence of malignancy. BI-RADS Category 1: Negative. No mammographic evidence of malignancy. Recommend routine screening m ammography in one year. A "normal" or negative report should not discourage follow up or biopsy of a clinically significant f inding. A written summary of these findings will be mailed to the patient. The patient will be entered into a mammography reporting system which will generate a reminder letter for the patient's next appointmen t at the appropriate interval. The [employer] recommends yearly mammograms starting at age 40 and continuing as l estefania as a woman is in good health. Breast MRI is recommended for women with an approximate 20-25% or greater lifetime risk of breast cancer, including women with a strong family history of breast or ova kit cancer or who have been treated for Hodgkin's disease. Signer Name: Olaf Mackenzie MD Signed: 05/11/2019 10:46 AM Workstation Name: [id number]
== END 2019-05-08 09:06 | disposition home or self-care (01) ==
LOC: MAMMO 09:05
PROVIDERS: ATTEND Family Medicine
DX: Z12.31 Encounter for screening mammogram for malignant neoplasm of breast (principal); I10 Essential (primary) hypertension
CPT/HCPCS: 77067

== ENCOUNTER 2021-08-22 16:53 | Emergency (ER) | payer MEDICAID | END 2021-08-22 18:00 | LOC: ED 16:53 | DX: S49.91XA Unspecified injury of right shoulder and upper arm, initial encounter (principal); S09.90XA Unspecified injury of head, initial encounter; Z53.21 Procedure and treatment not carried out due to patient leaving prior to being seen by health care provider; W19.XXXA Unspecified fall, initial encounter; Y93.89 Activity, other specified; Y92.89 Other specified places as the place of occurrence of the external cause; Y99.8 Other external cause status ==